=== PATIENT | female | born 1945 | race Two or more races ===

== ENCOUNTER 2019-04-23 11:50 | Emergency (ER) | payer MEDICAID, MEDICARE ==
[~2019-04-23] VITALS: Ht 154.9 cm; Wt 66.7 kg
[2019-04-23 12:13] LABS: APPEARANCE,URINE Clear (CLEAR); BILIRUBIN,URINE Negative (NEGATIVE); BLOOD, URINE Negative Ery/uL (NEGATIVE); COLOR,URINE Yellow (YELLOW); KETONES,URINE Negative (NEGATIVE); LEUKOCYTE ESTERASE ,URINE Negative (NEGATIVE); NITRITE, URINE Negative (NEGATIVE); PH,URINE 6.5 (5.0-8.0); PROTEIN,URINE Negative (NEGATIVE); UGLUCOSE Negative (NEGATIVE); UROBILINOGEN,URINE 0.2 EU/dL (0.2)
[2019-04-23 12:30] VITALS: BP 128/74
== END 2019-04-23 12:30 | disposition home or self-care (01) ==
LOC: ER 11:50
DX: B02.9 Zoster without complications (principal); I10 Essential (primary) hypertension; Z88.6 Allergy status to analgesic agent; Z88.5 Allergy status to narcotic agent
CPT/HCPCS: 81000-TC

== ENCOUNTER 2022-12-30 12:50 | Emergency (ER) | payer MEDICARE ==
[~2022-12-30] VITALS: Ht 149.9 cm; Wt 68.0 kg
[2022-12-30 13:04] VITALS: BP 173/69; TEMP 98.4
[2022-12-30] MEDS ORDERED: KETO10TA2 PO (14:16)
[2022-12-30] MEDS ORDERED: LIDO1ADH82 TP (14:16)
[2022-12-30] MEDS ORDERED: ACYC-108 PO (14:16)
== END 2022-12-30 14:23 | disposition home or self-care (01) ==
LOC: ER 13:02
DX: B02.9 Zoster without complications (principal); I10 Essential (primary) hypertension; Z79.899 Other long term (current) drug therapy; Z88.5 Allergy status to narcotic agent; Z88.1 Allergy status to other antibiotic agents